=== PATIENT | female | born 1970 | race Caucasian/White ===

== ENCOUNTER → 2017-04-15 09:29 | Outpatient (CLI) | payer OTHER, SELFPAY ==
--- NOTE | 2017-04-15 09:33 | HPBI_ITS ---
MAMMOGRAPHY - BILATERAL SCREENING REASON FOR EXAM: Female, 47 years old. Routine annual screening examination. PERTINENT HISTORY: Aunt with breast cancer. TECHNIQUE: Digital bilateral breast robert (3D mammographic acquisition) in the CC and MLO projections. 2-D mediolateral oblique (MLO) and craniocaudad (CC) views of both breasts were obtained. CAD: Full Field Digital Mammography with Computer Added Detection was performed. COMPARISON: Comparison is made with prior abdomen examination dated September 20, 2010. FINDINGS: Breast Composition: There are scattered areas of fibroglandular density. There are no dominant masses or suspicious calcifications. Stable 6.7 mm x 6.8 mm nodule in the upper deep lateral portion of the left breast. This may represent a small cyst or small lymph node. Correlation with ultrasound is recommended. No other significant abnormalities are identified. There has been no significant change since the prior study. HPBI/SCREENING MAMM (CAD), BILAT IMPRESSION: Stable bilateral screening mammogram. Correlation with ultrasound of the right breast is recommended for further evaluation. ASSESSMENT CATEGORY: BIRADS Category 0: Incomplete. Need additional imaging evaluation. A letter regarding these results will be sent to the patient by the facility within 30 days. Approximately 10% of breast cancers are not detected by mammography. A normal mammogram should not delay biopsy of a clinically suspicious abnormality. [id number] Electronically Signed: Spenser Verma MD at 15:18 EST Tel [phone], Service support ,
== END ==
PROVIDERS: Family Provider Family Medicine; PCP Family Medicine; Visit Provider Family Medicine
DX: Z00.00 Encounter for general adult medical examination without abnormal findings (principal); Z12.31 Encounter for screening mammogram for malignant neoplasm of breast
CPT/HCPCS: 77063; 77067

== ENCOUNTER → 2017-04-23 10:25 | Outpatient (CLI) | payer OTHER, SELFPAY ==
--- NOTE | 2017-04-23 10:27 | US_ITS ---
STUDY: ULTRASOUND BREAST - LEFT REASON FOR EXAM: Female, 47 years old. Abnormal screening mammogram. TECHNIQUE: Axial and longitudinal images of the LEFT breast were performed with a high resolution ultrasound transducer. COMPARISON: Comparison is made with prior mammogram dated April 15, 2017. FINDINGS: LEFT Breast: There is a 6 mm x 6 mm x 4 mm well-defined hypoechoic nodule with central area of increased echotexture at the 2:00 position of the breast a 6 x 4. This corresponds to the mammographic findings. This most likely represents a small lymph node. US/Breast Limited Unilateral IMPRESSION: The mammographic findings correspond to a 6 mm x 6 mm x 4 mm lymph node. ASSESSMENT CATEGORY: BIRADS Category 2: Benign. A letter regarding these results will be sent to the patient by the facility within 30 days. Electronically Signed: Spenser Verma MD at 12:44 EST Tel [phone], Service support ,
== END ==
PROVIDERS: Family Provider Family Medicine; PCP Family Medicine; Visit Provider Family Medicine
DX: N63.20 Unspecified lump in the left breast, unspecified quadrant (principal)
CPT/HCPCS: 76642

== ENCOUNTER 2017-11-26 23:18 | Emergency (ER) | payer OTHER, SELFPAY ==
[2017-11-26 23:18] VITALS: BP 144/90; PULSE 67; RESP 14; TEMP 36.8; O2SAT 100; BMI 32.5
--- NOTE | 2017-11-26 23:50 | ED.VISSUMM ---
- ER Visit Summary Date of Service: 11/26/17 Chief Complaint: Right fourth finger swelling History of Present Illness: The patient is a 47 F he states the edge of her nail along the right fourth finger was torn back last week. She denies increased redness and swelling to the distal aspect of her right fourth finger and around her nail. She has not had any drainage from the area. Physical Examination: Vital signs unremarkable. Patient sitting upright in bed no acute distress. Right upper extremity examination was edema around the nail of the right fourth finger consistent with a paronychia. She has edema to the distal pad of the right fourth finger without evidence of a felon. Normal cap refill is noted with full range of motion. Test Results: Emergency Department Course and Treatment: Digital block was performed 2 cc 1% lidocaine. 1 cm incision is made along the radial aspect of the left fourth fingernail. Blood and a small amount of clear fluid is returned. Wound is cleansed and dressing is applied. Patient will be given 10 days of clindamycin with first dose here. Treatment Plan: [] Disposition: Discharge Impression: Paronychia right fourth finger, status post I&D This note was generated with [employer] dictation software. It may contain incorrect words, spelling, and punctuation that were not noted in review of the chart prior to signing ED Disposition - Plan for ED Patient: Disposition: Home or Assisted Living Chief Complaint: Upper Extremity Injury Instructions: ED Fingernail Infec Prescriptions: Clindamycin [Cleocin] 300 mg PO 4X/DAY #80 capsule Referrals: Chun Adams MD [Primary Care Provider] - 5-7 Days
[2017-11-26] MEDS: Clindamycin HCl 150 MG Capsule 300 MG PO (23:55)
--- NOTE | 2017-11-27 00:06 | ED.DEP ---
ED Disposition - Plan for ED Patient: Disposition: Home or Assisted Living Chief Complaint: Upper Extremity Injury Instructions: ED Fingernail Infec Prescriptions: Clindamycin [Cleocin] 300 mg PO 4X/DAY #80 capsule Referrals: Chun Adams MD [Primary Care Provider] - 5-7 Days
[2017-11-27 00:47] VITALS: BP 131/79; PULSE 81; RESP 18; O2SAT 97
--- NOTE | 2017-11-27 00:49 | ED.RN ---
THIS NURSE REVIEWED D/C INSTRUCTIONS WITH PT. PT VERBALIZED UNDERSTANDING OF INSTRUCTIONS. PT DENIES FURTHER NEEDS OR QUESTIONS AT THIS TIME. PT AMBULATES FROM ROOM ON OWN WITHOUT ASSISTANCE FROM STAFF
== END 2017-11-27 00:49 | disposition home or self-care (01) ==
LOC: ED 11-27 00:16
PROVIDERS: Emergency Provider Emergency Medicine; Family Provider Family Medicine; PCP Family Medicine
DX: L03.011 Cellulitis of right finger (principal); B96.89 Other specified bacterial agents as the cause of diseases classified elsewhere
CPT/HCPCS: 10060; 99283

== ENCOUNTER 2018-05-27 10:52 | Day surgery (SDC) | payer OTHER, SELFPAY ==
[2018-05-16 09:31] VITALS: BMI 35.8
[2018-05-27] VITALS (10 sets, daily range): BP systolic 77–119; BP diastolic 41–89; PULSE 59–71; RESP 16–18; TEMP 36.4–36.9; O2SAT 92–99; BMI 35.6
[2018-05-27 11:50] LABS: Internal QC Validated? YES +Cl - CLEAR BKGD; Pregnancy, Urine Negative Negative
[2018-05-27] MEDS: Cefazolin 2 GM in 0.9% Normal Saline 100 ML IV (13:42)
[2018-05-27] MEDS: Bupiv/Epi 0.5% Mpf 30 ML Vial (13:58)
[2018-05-27] MEDS: Bupivacaine 0.25% 30 ML Vial (14:15)
[2018-05-27] MEDS: MethylPREDNISolone Acetate 80 MG/ML Vial (14:15)
--- NOTE | 2018-05-27 14:26 | DCINST_ITS ---
Call your doctor if you observe: Fever of 101 or Higher, Shortness of breath Additional Instructions: Ice and elevate operative extremity next 72 hours. Keep dressing on clean and dry for 48 hours then may remove and allow warm soapy water to rinse over incision but do not submerge until sutures are out. Then apply bandaid over inci waldo and change daily. encourage finger range of motion. Not lift more than 1/2 pound. Allergies/Adverse Reactions: Allergies albuterol Allergy (Verified 05/21/18 14:55) Other hydrocodone [From Vicodin] Allergy (Verified 05/21/18 14:55) Other naproxen [From Aleve] Allergy (Verified 05/21/18 14:55) Hives oxaprozin [From Daypro] Allergy (Verified 05/21/18 14:55) Swelling Sulfa (Sulfonamide Antibiotics) Allergy (Verified 05/21/18 14:55) Hives Medications to take at Discharge lisinopril 5 mg tablet 20 mg PO DAILY tab 05/16/18 omeprazole 10 mg capsule,delayed release 40 mg PO DAILY cap 05/16/18 sertraline 25 mg tablet 75 mg PO DAILY tab 05/16/18 Levalbuterol Tartrate [Xopenex Hfa (SP)] 1 puff INHALATION Q4H PRN 05/21/18 Oxycodone HCl/Acetaminophen [Percocet 5/325] 1 - 2 tablet PO Q4H PRN PRN #20 tablet 05/27/18 The following prescriptions were given: Oxycodone HCl/Acetaminophen [Percocet 5/325] 1 - 2 tablet PO Q4H PRN PRN #20 tablet PRN Reason: Pain Primary Care Physician: Chun Adams MD [Primary Care Provider] - Test Results: Test results from this visit will be discussed in further detail at your follow- up appointment, if applicable. Please Follow Up With: Karri Infante DO - 2 weeks
--- NOTE | 2018-05-27 14:26 | PCM.OPRPT ---
Report of Operation Date of Procedure: 05/27/18 Description of Surgical Findings:: Preoperative diagnosis; bilateral carpal tunnel syndrome Postoperative diagnosis; same Procedure: Right carpal tunnel release open and left carpal tunnel injection Anesthesia: Local with MAC Tourniquet time; 13 minutes 250 mm Hg Indication for procedure; This is a 48-year-old female with long-standing symptoms consistent with carpal tunnel syndrome the patient did have electrodiagnostic evidence of this and has failed conservative treatment. Risks benefits and alternatives were reviewed including risks of bleeding infection nerve artery tissue damage need for further surgery and continued pain and symptoms, hypersensitivity to scar and Pillar pain. Procedure; The patient was met in the preoperative holding area the operative extremity was identified by both patient and physician and was marked the patient was met by anesthesia and brought back to the operating room and transferred to the operating table in the supine position. Aanesthesia was started. A well-padded tourniquet was placed on the right upper extremity. The patient was prepped and draped in the usual sterile fashion. A timeout was called to ensure the proper patient procedure and extremity were being contemplated. 0.5 percent Marcaine with epinephrine was injected into the incisional area. An Esmarch was used to exsanguinate the extremity. The tourniquet was inflated to 250 mmHg. A midline incision was made with a 15 blade scalpel between the thenar and hypothenar eminence. This was carried down through the skin and subcutaneous tissue. Corey retractors were then used, a deep blade scalpel was used to make a deep incision in the palmar aponeurosis. The corey retractors were then placed deep to this and the transverse carpal ligament was identified a perforation was made with a scalpel and a Littler scissors were used to complete the release of the transverse carpal ligament distally under direct visualization with the tips facing ulnarly until the perivascular fat was reached. Then turning our attention proximally using a tension slide technique the proximal extent of the transverse carpal ligament was released . There was noted to be hypertrophy of the transverse carpal ligament. The wound was thoroughly irrigated and was closed with 4-0 prolene vertical mattress stitches. Dressing was applied in the form of xeroform 4 x 4, web roll and an pauly wrap. Tourniquet was let down there is no intraoperative complications patient tolerated the procedure well and was transferred to the PACU. All counts were correct. - Complications None
== END 2018-05-27 16:03 | disposition home or self-care (01) ==
LOC: SDC 10:53 → AC 10:54
PROVIDERS: Anesthesiology; Family Provider Family Medicine; PCP Family Medicine; Referring Provider Orthopaedic Surgery; Visit Provider Orthopaedic Surgery
PROC: (CPT 64721; principal; 2018-05-27 12:20)
DX: G56.03 Carpal tunnel syndrome, bilateral upper limbs (principal); I10 Essential (primary) hypertension; J45.909 Unspecified asthma, uncomplicated; F41.9 Anxiety disorder, unspecified; K21.9 Gastro-esophageal reflux disease without esophagitis; Z79.899 Other long term (current) drug therapy
CPT/HCPCS: 01810; 20526; 64721; 81025; J7120; J2405

== ENCOUNTER 2018-07-10 08:07 | Emergency (ER) | payer OTHER, SELFPAY ==
[2018-05-27 11:45] VITALS: BMI 35.6
[2018-07-10 08:09] VITALS: BP 154/82; PULSE 70; RESP 18; TEMP 36.6; O2SAT 96; BMI 34.3
--- NOTE | 2018-07-10 08:25 | RAD_ITS ---
STUDY: X-RAY - LEFT HAND REASON FOR EXAM: Female, 48 years old. Fifth digit pain TECHNIQUE: 3 view(s) of the hand. COMPARISON: None. FINDINGS: On only the oblique view, there is a serpiginous lucency in the distal tuft of the distal phalanx of the fifth digit suggestive of a fracture but this is not confirmed on the lateral or AP films. Normal radiocarpal articulation. Normal distal radioulnar joint. Normal visualized carpal bones. Normal carpal articulations Normal carpometacarpal articulation of the thumb. Normal second through fifth carpometacarpal joints. Normal metacarpi. Normal metacarpophalangeal joint of the thumb. Normal interphalangeal joint of the thumb. Normal proximal and distal phalanges of the thumb. Normal metacarpophalangeal joints of the second through fifth fingers. Normal proximal and distal interphalangeal joints of the second through fifth fingers. Normal phalanges of the second through fifth fingers. The soft tissue structures are unremarkable. RAD/Hand Min 3 Views IMPRESSION: Nondisplaced fracture in the distal tuft of the distal phalanx seen only on the oblique view. Please correlate with physical findings. Electronically Signed: Michel Cherry MD at 8:43 EDT , Service support ,
--- NOTE | 2018-07-10 08:39 | ED.RN ---
pt mother to door. requests new physician. states very angry at this dr attitude. pt reassured. dr villa aware. dr ku paged
--- NOTE | 2018-07-10 08:40 | ED.VISSUMM ---
- ER Visit Summary Date of Service: 07/10/18 Chief Complaint: Left fifth finger injury History of Present Illness: The patient is a 48 F who hit her left fifth finger against a counter 2 weeks ago. Patient states she did not think much of it at the time the area continues to be painful. She is right-hand dominant but did recently have carpal tunnel surgery on her right wrist so has been using her left hand more than normal. Physical Examination: Vital signs significant for blood pressure 154/82, otherwise unremarkable. Patient sitting upright in bed no acute distress. Left upper extremity examination was tenderness to the PIP joint of the left fifth finger. No significant edema or erythema. She has full range of motion. Ligaments are tight on testing. Normal cap refill and sensation are noted. Test Results: Left hand x-rays reveal a nondisplaced fracture of the distal tuft of the distal phalanx that is only visible on the oblique view. Emergency Department Course and Treatment: Test results were discussed with the patient and she was shown a copy of her x-ray. When the distal phalanx is palpated patient has pain at the PIP joint. She will be placed in a AlumaFoam splint to immobilize the PIP joint as well as protect the distal phalanx. Patient is known to Dr. Infante and will follow-up if not improving. Treatment Plan: [] Disposition: Discharge Impression: Left fifth finger distal tuft fracture, nondisplaced This note was generated with [employer] dictation software. It may contain incorrect words, spelling, and punctuation that were not noted in review of the chart prior to signing ED Disposition - Plan for ED Patient: Disposition: Home or Assisted Living Instructions: ED Fx Finger Closed Referrals: Karri Infante DO [STAFF PHYSICIAN] - 1 Week if not improving
== END 2018-07-10 11:49 | disposition home or self-care (01) ==
PROVIDERS: Emergency Provider Emergency Medicine; Family Provider Family Medicine; PCP Family Medicine
DX: S62.667A Nondisplaced fracture of distal phalanx of left little finger, initial encounter for closed fracture (principal); W22.8XXA Striking against or struck by other objects, initial encounter; Y93.9 Activity, unspecified; Y92.9 Unspecified place or not applicable; I10 Essential (primary) hypertension; J45.909 Unspecified asthma, uncomplicated
CPT/HCPCS: 73130; 99283

== ENCOUNTER → 2018-08-01 09:32 | Outpatient (CLI) | payer OTHER, SELFPAY ==
[2018-08-01 07:54] VITALS: BMI 34.3
--- NOTE | 2018-08-01 09:33 | RAD_ITS ---
STUDY: X-RAY - LEFT HAND REASON FOR EXAM: Female, 48 years old. Fracture follow-up TECHNIQUE: 3 view(s) of the hand. COMPARISON: 07/10/2018 FINDINGS: Normal radiocarpal articulation. Normal distal radioulnar joint. Normal visualized carpal bones. Normal carpal articulations Normal carpometacarpal articulation of the thumb. Normal second through fifth carpometacarpal joints. Normal metacarpi. Normal metacarpophalangeal joint of the thumb. Normal interphalangeal joint of the thumb. Normal proximal and distal phalanges of the thumb. Normal metacarpophalangeal joints of the second through fifth fingers. Normal proximal and distal interphalangeal joints of the second through fifth fingers. Normal phalanges of the second through fifth fingers. The soft tissue structures are unremarkable. RAD/Hand Min 3 Views IMPRESSION: No fracture or malalignment identified on current exam. Electronically Signed: Joseph Mathew MD at 14:03 EDT , Service support ,
== END ==
PROVIDERS: Family Provider Family Medicine; PCP Family Medicine; Referring Provider Orthopaedic Surgery; Visit Provider Orthopaedic Surgery
DX: S69.92XA Unspecified injury of left wrist, hand and finger(s), initial encounter (principal)
CPT/HCPCS: 73130

== ENCOUNTER 2018-08-19 06:00 | Day surgery (SDC) | payer OTHER, SELFPAY ==
[2018-08-01 07:54] VITALS: BMI 34.3
--- NOTE | 2018-08-01 10:49 | HP_ITS ---
Intake Vital Signs 08/01/18 Body Mass Index (BMI) 34.3 Intake Visit Reasons: L. HAND Chief Complaint: b/l hand numbness Allergies albuterol Allergy (Verified 07/10/18 08:11) Other hydrocodone [From Vicodin] Allergy (Verified 07/10/18 08:11) Other naproxen [From Aleve] Allergy (Verified 07/10/18 08:11) Hives oxaprozin [From Daypro] Allergy (Verified 07/10/18 08:11) Swelling Sulfa (Sulfonamide Antibiotics) Allergy (Verified 07/10/18 08:11) Hives Medications lisinopril 5 mg tablet 20 mg PO DAILY tab 05/16/18 [History Confirmed 07/10/18] omeprazole 10 mg capsule,delayed release 40 mg PO DAILY cap 05/16/18 [History Confirmed 07/10/18] sertraline 25 mg tablet 75 mg PO DAILY tab 05/16/18 [History Confirmed 07/10/18] Levalbuterol Tartrate [Xopenex Hfa (SP)] 1 puff INHALATION Q4H PRN 05/21/18 [History Confirmed 07/10/18] Oxycodone HCl/Acetaminophen [Percocet 5/325] 1 - 2 tab PO Q4H PRN PRN #20 tab 05/27/18 [Rx Confirmed 07/10/18] PFSH Medical History Asthma (Acute) HISTORY OF CHILD (Acute) History of goiter (Acute) Hypertension (Chronic) Surgical History H/O colposcopy with cervical biopsy (Inactive) Social History Smoking Status: Never smoker alcohol intake: never HPI L. HAND: Chief Complaint: left pinky finger injury and left carpal tunnel Surgical H&P: Yes Details: Parts of this documentation were recorded by a scribe, this documentation accurately reflects the service provided and the decisions made by me, Karri Infante DO 08/01/18 [id number]. ATTILA IRBY is a 48 year old F here today for left pinky finger fx that occurred on 06/16/18. Patient then went to the ER 3 weeks later. They gave her a spilt and told her to keep her pinky immobile and if this was still causing her pain she was instructed to F/U with ortho. The injury was her smacking the back of her hand against a solid object . She is not having any pain at the tip of the finger but more isolated to the PIP and MP joints. She did trial clary taping on her own .. Has good ROM but does have pain. She is able to flex and extend the digit with ease she did have a cortisone injection of the left carpal tunnel on 05/27/18 for carpal tunnel which she states is staring to wear off. Last x-rays of jayden are July 10. Patient is also starting to have her carpal tunnel s/sx back in the left wrist/hand. right hand is doing well. ROS Const Reports system reviewed and no additional complaints, except as docu Eyes Reports system reviewed and no additional complaints, except as docu ENT Reports system reviewed and no additional complaints, except as docu Card Reports system reviewed and no additional complaints, except as docu Resp Reports system reviewed and no additional complaints, except as docu GI Reports system reviewed and no additional complaints, except as docu Musc Reports system reviewed and no additional complaints, except as docu, Reports as per HPI Skin/Breast Reports system reviewed and no additional complaints, except as docu Neuro Yes system reviewed and no additional complaints, except as docu Psych Reports system reviewed and no additional complaints, except as docu Endo Reports system reviewed and no additional complaints, except as docu Sourav/Lymph Reports system reviewed and no additional complaints, except as docu Aller/Immun Reports system reviewed and no additional complaints, except as docu Ortho Exam Left Wrist/Hand WRIST: Intact extensor tendon without subluxation through range of motion intact FDS and FDP There is no collateral ligament instability to MP or PIP joints in full extension or 30 degrees of flexion there is no pain with these test either radial side of the 5th PIP joint no extensor tendon subluxation. Intact sensation light touch brisk capillary Provocative signs for carpal tunnel are present Supplemental Info 01/2018: EMG moderate bilateral carpal tunnel 07/10/2018 x-ray left hand: Nondisplaced distal phalanx tuft fracture fifth digit only seen on oblique view. Assessment & Plan Problems 1. Carpal tunnel syndrome of left wrist G56.02 2. Contusion of left little finger without damage to nail, initial encounter S60.889Q Plan Appeared that she possibly had a fx from the 07/10/18 x-rays of the distal phalanx however she is not having pain there today I suspect she has sustained a bone bruise to the proximal phalanx. . Educated that this may take up to 4 months to fully heal. it is recommended that she try a lidocaine gel to the painful area that she can get OTC. Since patient is also getting her carpal tunnel symptoms back she would like to proceed left carpal tunnel release risk benefits and alternatives once again reviewed bleeding infection nerve artery tissue damage need for further surgery continue pain scar hypersensitivity pillar pain. as she has had the right one done by myself and did well we will put her on the August 19 per her request. All questions answered. Patient in agreement of plan. Orders Orders: Hand Min 3 Views Today R52 Coding Level of Care Code Off vis,est,level 4 Diagnoses Carpal tunnel syndrome of left wrist G56.02 Contusion of left little finger without damage to nail, initial encounter S60.052A ??Damage to nail status: without damage ??Encounter type: initial encounter 08/01/18 2000 <Electronically signed by Karri Infante DO> Date Karri Infante DO
[2018-08-19] VITALS (8 sets, daily range): BP systolic 88–128; BP diastolic 58–88; PULSE 73–83; RESP 16–18; TEMP 36.1–36.5; O2SAT 94–99; BMI 37.9
[2018-08-19 06:36] LABS: Internal QC Validated? YES +Cl - CLEAR BKGD; Pregnancy, Urine Negative Negative
--- NOTE | 2018-08-19 07:15 | PCM.HP.BLA ---
History and Physical Date of Admission: 08/19/18 Intake Vital Signs 08/01/18 Body Mass Index (BMI) 34.3 Intake Visit Reasons: L. HAND Chief Complaint: b/l hand numbness Allergies albuterol Allergy (Verified 07/10/18 08:11) Other hydrocodone [From Vicodin] Allergy (Verified 07/10/18 08:11) Other naproxen [From Aleve] Allergy (Verified 07/10/18 08:11) Hives oxaprozin [From Daypro] Allergy (Verified 07/10/18 08:11) Swelling Sulfa (Sulfonamide Antibiotics) Allergy (Verified 07/10/18 08:11) Hives Medications lisinopril 5 mg tablet 20 mg PO DAILY tab 05/16/18 [History Confirmed 07/10/18] omeprazole 10 mg capsule,delayed release 40 mg PO DAILY cap 05/16/18 [History Confirmed 07/10/18] sertraline 25 mg tablet 75 mg PO DAILY tab 05/16/18 [History Confirmed 07/10/18] Levalbuterol Tartrate [Xopenex Hfa (SP)] 1 puff INHALATION Q4H PRN 05/21/18 [History Confirmed 07/10/18] Oxycodone HCl/Acetaminophen [Percocet 5/325] 1 - 2 tab PO Q4H PRN PRN #20 tab 05/27/18 [Rx Confirmed 07/10/18] PFSH Medical History Asthma (Acute) HISTORY OF CHILD (Acute) History of goiter (Acute) Hypertension (Chronic) Surgical History H/O colposcopy with cervical biopsy (Inactive) Social History Smoking Status: Never smoker alcohol intake: never HPI L. HAND: Chief Complaint: left pinky finger injury and left carpal tunnel Surgical H&P: Yes Details: Parts of this documentation were recorded by a scribe, this documentation accurately reflects the service provided and the decisions made by me, Karri Infante DO 08/01/18 0754. ATTILA IRBY is a 48 year old F here today for left pinky finger fx that occurred on 06/16/18. Patient then went to the ER 3 weeks later. They gave her a spilt and told her to keep her pinky immobile and if this was still causing her pain she was instructed to F/U with ortho. The injury was her smacking the back of her hand against a solid object . She is not having any pain at the tip of the finger but more isolated to the PIP and MP joints. She did trial clary taping on her own .. Has good ROM but does have pain. She is able to flex and extend the digit with ease she did have a cortisone injection of the left carpal tunnel on 05/27/18 for carpal tunnel which she states is staring to wear off. Last x-rays of jayden are July 10. Patient is also starting to have her carpal tunnel s/sx back in the left wrist/hand. right hand is doing well. ROS Const Reports system reviewed and no additional complaints, except as docu Eyes Reports system reviewed and no additional complaints, except as docu ENT Reports system reviewed and no additional complaints, except as docu Card Reports system reviewed and no additional complaints, except as docu Resp Reports system reviewed and no additional complaints, except as docu GI Reports system reviewed and no additional complaints, except as docu Musc Reports system reviewed and no additional complaints, except as docu, Reports as per HPI Skin/Breast Reports system reviewed and no additional complaints, except as docu Neuro Yes system reviewed and no additional complaints, except as docu Psych Reports system reviewed and no additional complaints, except as docu Endo Reports system reviewed and no additional complaints, except as docu Sourav/Lymph Reports system reviewed and no additional complaints, except as docu Aller/Immun Reports system reviewed and no additional complaints, except as docu Ortho Exam Left Wrist/Hand WRIST: Intact extensor tendon without subluxation through range of motion intact FDS and FDP There is no collateral ligament instability to MP or PIP joints in full extension or 30 degrees of flexion there is no pain with these test either radial side of the 5th PIP joint no extensor tendon subluxation. Intact sensation light touch brisk capillary Provocative signs for carpal tunnel are present Supplemental Info 01/2018: EMG moderate bilateral carpal tunnel 07/10/2018 x-ray left hand: Nondisplaced distal phalanx tuft fracture fifth digit only seen on oblique view. Assessment & Plan Problems 1. Carpal tunnel syndrome of left wrist G56.02 2. Contusion of left little finger without damage to nail, initial encounter S60.042A Plan Appeared that she possibly had a fx from the 4/25/19 x-rays of the distal phalanx however she is not having pain there today I suspect she has sustained a bone bruise to the proximal phalanx. . Educated that this may take up to 4 months to fully heal. it is recommended that she try a lidocaine gel to the painful area that she can get OTC. Since patient is also getting her carpal tunnel symptoms back she would like to proceed left carpal tunnel release risk benefits and alternatives once again reviewed bleeding infection nerve artery tissue damage need for further surgery continue pain scar hypersensitivity pillar pain. as she has had the right one done by myself and did well we will put her on the August 19 per her request. All questions answered. Patient in agreement of plan. Orders Orders: Hand Min 3 Views Today R52 Coding Level of Care Code Off vis,est,level 4 Diagnoses Carpal tunnel syndrome of left wrist G56.02 Contusion of left little finger without damage to nail, initial encounter S60.052A ??Damage to nail status: without damage ??Encounter type: initial encounter 08/01/18 1050 <Electronically signed by Karri Infante DO> Date Karri Infante DO I have examined the patient the following changes are noted:
[2018-08-19] MEDS: Cefazolin 2 GM in 0.9% Normal Saline 100 ML IV (07:22)
[2018-08-19] MEDS: Bupiv/Epi 0.5% Mpf 30 ML Vial (07:51)
--- NOTE | 2018-08-19 07:55 | DCINST_ITS ---
Additional Instructions: Ice and elevate operative extremity next 72 hours. Keep dressing on clean and dry for 48 hours then may remove and allow warm soapy water to rinse over incision but do not submerge until sutures are out. Then apply bandaid over incision and change daily. encourage finger range of motion. Not lift more than 1/2 pound. Allergies/Adverse Reactions: Allergies albuterol Allergy (Verified 08/19/18 06:16) Other hydrocodone [From Vicodin] Allergy (Verified 08/19/18 06:16) Other naproxen [From Aleve] Allergy (Verified 08/19/18 06:16) Hives oxaprozin [From Daypro] Allergy (Verified 08/19/18 06:16) Swelling Sulfa (Sulfonamide Antibiotics) Allergy (Verified 08/19/18 06:16) Hives Medications to take at Discharge lisinopril 5 mg tablet 20 mg PO DAILY tab 05/16/18 omeprazole 10 mg capsule,delayed release 40 mg PO DAILY cap 05/16/18 sertraline 25 mg tablet 75 mg PO DAILY tab 05/16/18 Levalbuterol Tartrate [Xopenex Hfa (SP)] 1 puff INHALATION Q4H PRN 05/21/18 Primary Care Physician: Chun Adams MD [Primary Care Provider] - Test Results: Test results from this visit will be discussed in further detail at your follow- up appointment, if applicable. Please Follow Up With: Karri Infante DO - 2 weeks
--- NOTE | 2018-08-19 07:57 | PCM.OPRPT ---
Report of Operation Date of Procedure: 08/19/18 Description of Surgical Findings:: Preoperative diagnosis; left carpal tunnel syndrome Postoperative diagnosis; same Procedure: Left open carpal tunnel release Anesthesia: Local with MAC Tourniquet time; 10 minutes 250 mm Hg Complications: None Indication for procedure; This is a 48-year-old female with long-standing symptoms consistent with carpal tunnel syndrome the patient did have electrodiagnostic evidence of this and has failed conservative treatment. Risks benefits and alternatives were reviewed including risks of bleeding infection nerve artery tissue damage need for further surgery and continued pain and symptoms, hypersensitivity to scar and Pillar pain. Procedure; The patient was met in the preoperative holding area the operative extremity was identified by both patient and physician and was marked the patient was met by anesthesia and brought back to the operating room and transferred to the operating table in the supine position. Aanesthesia was started. A well-padded tourniquet was placed on the operative upper extremity. The patient was prepped and draped in the usual sterile fashion. A timeout was called to ensure the proper patient procedure and extremity were being contemplated. 0.5 percent Marcaine with epinephrine was injected into the incisional area. An Esmarch was used to exsanguinate the extremity. The tourniquet was inflated to 250 mmHg. A midline incision was made with a 15 blade scalpel between the thenar and hypothenar eminence. This was carried down through the skin and subcutaneous tissue. Corey retractors were then used, a deep blade scalpel was used to make a deep incision in the palmar aponeurosis. The corey retractors were then placed deep to this and the transverse carpal ligament was identified a perforation was made with a scalpel and a Littler scissors were used to complete the release of the transverse carpal ligament distally under direct visualization with the tips facing ulnarly until the perivascular fat was reached. Then turning our attention proximally using a tension slide technique the proximal extent of the transverse carpal ligament was released . There was noted to be hourglass configuration to the median nerve and hypertrophy of the transverse carpal ligament without other findings. The wound was thoroughly irrigated and was closed with 4-0 prolene vertical mattress stitches. Dressing was applied in the form of xeroform 4 x 4, web roll and an pauly wrap. Tourniquet was let down there is no intraoperative complications patient tolerated the procedure well and was transferred to the PACU. All counts were correct.
== END 2018-08-19 08:59 | disposition home or self-care (01) ==
LOC: SDC 06:01 → AC 06:02
PROVIDERS: Anesthesiology; Family Provider Family Medicine; PCP Family Medicine; Referring Provider Orthopaedic Surgery; Visit Provider Orthopaedic Surgery
PROC: (CPT 64721; principal; 2018-08-19 07:15)
DX: G56.02 Carpal tunnel syndrome, left upper limb (principal); S60.052A Contusion of left little finger without damage to nail, initial encounter; W22.8XXA Striking against or struck by other objects, initial encounter; K21.9 Gastro-esophageal reflux disease without esophagitis; I10 Essential (primary) hypertension; J45.909 Unspecified asthma, uncomplicated; F41.9 Anxiety disorder, unspecified; Z79.899 Other long term (current) drug therapy
CPT/HCPCS: 64721; 81025; J7120; J2405

== ENCOUNTER 2018-09-14 14:11 | Emergency (ER) | payer OTHER, SELFPAY ==
[2018-09-01 10:18] VITALS: BMI 37.9
[2018-09-14 14:13] VITALS: BP 148/95; PULSE 78; RESP 16; TEMP 36.8; O2SAT 96; BMI 34.3
--- NOTE | 2018-09-14 14:29 | RAD_ITS ---
STUDY: X-RAY - LEFT WRIST REASON FOR EXAM: Female, 48 years old. Left wrist pain and swelling following carpal tunnel syndrome surgery or weeks ago TECHNIQUE: 3 view(s) of the wrist were obtained. COMPARISON: None. FINDINGS: Normal visualized distal radius and ulna. Normal radiocarpal articulation. Normal distal radioulnar articulation. Normal carpal bones. Normal carpal articulations. Normal carpometacarpal articulation of the thumb. Normal second through fifth carpometacarpal articulations. Normal visualized metacarpal bones. There is diffuse soft tissue swelling of the wrist. RAD/Wrist min 3 Views IMPRESSION: Soft tissue swelling without demonstrated fracture or erosive process. Electronically Signed: Joseph Mathew MD at 15:14 EDT , Service support ,
--- NOTE | 2018-09-14 14:41 | ED.VISSUMM ---
- ER Visit Summary Date of Service: 09/14/18 Chief Complaint: Left wrist pain History of Present Illness: The patient is a 48 F who is 4 weeks status post tunnel release on her left wrist by Dr. Infante presents to the emergency department increasing pain. Patient states that yesterday, she was at [facility]. She states that she reached for something with her left hand. She cannot recall any definitive trauma. States overnight, there was more swelling in her wrist. She states that she had some tingling in her thumb. Today, the swelling has improved but she was just concerned. She denies any fevers or chills. She denies any other systemic symptoms. She has not had to wear her brace in some time. Physical Examination: Exam is relatively unremarkable. There is no evidence of dehiscence of her postoperative wound. There is a questionable small seroma at the proximal aspect of the incision. There is no cellulitis or purulence. There is no streaking. Pulses are normal. She is neurovascularly intact. There is no weakness. She is able to flex and extend without issue. Compartments are soft. Test Results: [] Emergency Department Course and Treatment: Patient presents with pain after twisting her wrist. Her exam is unremarkable. I do question if there is a small seroma at the proximal aspect of her incision, but there is no significant cellulitis. I do not feel his need to drain. I am hesitant to even attempt to aspirate it as the risk of seeding and infection and a recent surgical site. I did obtain plain films which were unremarkable. I am going to treat the patient conservatively with bracing and have a follow-up with orthopedic surgeon in the next few days. She is comfortable with this plan of care. I did substance abuse counselor her on concerning symptoms and reasons to return. She will be discharged to home. Treatment Plan: [] Disposition: Discharge Impression: Left wrist sprain This note was generated with [employer] dictation software. It may contain incorrect words, spelling, and punctuation that were not noted in review of the chart prior to signing ED Disposition - Plan for ED Patient: Instructions: Wrist Sprain Referrals: Karri Infante DO [STAFF PHYSICIAN] - 3-5 Days if not improving
[2018-09-14 15:01] VITALS: PULSE 81; RESP 16; O2SAT 98
== END 2018-09-14 15:03 | disposition home or self-care (01) ==
LOC: ED 14:35
PROVIDERS: Emergency Provider Emergency Medicine; Family Provider Family Medicine; PCP Family Medicine
DX: S63.502A Unspecified sprain of left wrist, initial encounter (principal); X58.XXXA Exposure to other specified factors, initial encounter; Y93.89 Activity, other specified; Y92.512 Supermarket, store or market as the place of occurrence of the external cause; Z98.890 Other specified postprocedural states; I10 Essential (primary) hypertension
CPT/HCPCS: 73110; 99283

== ENCOUNTER → 2019-04-28 14:47 | Outpatient (CLI) | payer OTHER, SELFPAY ==
[2018-11-24 09:35] VITALS: BMI 34.3
[2019-05-04 20:54] LABS: HPV Reflexed? NOT INDICATED
== END ==
PROVIDERS: PCP Family Medicine; Referring Provider Nurse Practitioner Adult Health; Visit Provider Nurse Practitioner Adult Health
DX: Z01.419 Encounter for gynecological examination (general) (routine) without abnormal findings (principal)
CPT/HCPCS: 88175; G0145

== ENCOUNTER 2019-10-24 22:36 | Emergency (ER) | payer OTHER, SELFPAY ==
[2018-11-24 09:35] VITALS: BMI 34.3
[2019-10-24 22:37] VITALS: BP 155/98; PULSE 87; RESP 15; TEMP 35.1; O2SAT 98; BMI 37.5
[2019-10-24 22:48] VITALS: PULSE 86; RESP 18; O2SAT 98
--- NOTE | 2019-10-24 22:57 | ED.DCSUM_ITS ---
History of Present Illness Chief Complaint: Allergic Reaction Informant: Patient Onset: Today Context: Gradual Onset Timing: Continuous Current Severity: Mild Maximum Severity: Mild Narrative: The patient is a 49-year-old female who presents to the emergency department complaining of tongue swelling. Patient states that started about an hour ago. She states she felt like her tongue was bigger than usual. She also describes it as burning. She denies any trouble speaking or swallowing. She states when she noticed that, she did take an Jessy. The patient is on lisinopril. She has no history of angioedema. She does not recall any new exposures. She states she has multiple food allergies, but nothing that she was exposed to. The patient states she is otherwise been in her normal state of health. Prior similar symptoms: No Recent Illness/Hospitalization: No Past Medical History - Allergies and Home Meds Allergies/Adverse Reactions: Allergies albuterol Allergy (Verified 10/24/19 22:40) Other hydrocodone [From Vicodin] Allergy (Verified 10/24/19 22:40) Other mint Allergy (Verified 10/24/19 22:50) Rash naproxen [From Aleve] Allergy (Verified 10/24/19 22:40) Hives oxaprozin [From Daypro] Allergy (Verified 10/24/19 22:40) Swelling strawberry Allergy (Verified 10/24/19 22:50) Hives Sulfa (Sulfonamide Antibiotics) Allergy (Verified 10/24/19 22:40) Hives tea tree Allergy (Verified 10/24/19 22:50) Rash Primary Care Physician: Cuhn Adams MD [Primary Care Provider] - Prior records reviewed: Yes Past Medical History: - - Hypertension, thyroid disease Surgical History: noncontributory Smoking Status: Never smoker Review of Systems General: Denies: Chills, Fever, Sweats Eyes: Denies: Visual changes - bilaterally, Diplopia ENT: Denies: Rhinorrhea, Sore throat Cardiovascular: Denies: Chest pain, Palpitations Respiratory: Denies: Dyspnea, Cough, Dyspnea on exertion Gastrointestinal: Denies: Abdominal pain, Nausea, Vomiting, Diarrhea, Melena, Hematochezia Genitourinary: Denies: Dysuria, Hematuria, Frequency Musculoskeletal: Denies: Back pain, Extremity Pain Skin: Denies: Rash, Wounds Neurological: Denies: Headache, Weakness, Numbness Physical Exam Vital Signs/Narrative: Vital Signs Temp Pulse Resp BP Pulse Ox 10/24/19 22:48 86 18 98 10/24/19 22:37 95.2 F L 87 15 155/98 H 98 Inital Vital Signs reviewed: Yes General: Well nourished, Well developed, No Acute Distress Head: Normocephalic, Atraumatic Eyes: Perrl, EOMI ENT: Moist mucous membranes, No rhinorrhea Neck: Supple, Nontender Cardiovascular: Regular rate, Regular rhythm, No murmurs Respiratory: No distress, CTA bilaterally, Chest nontender Abdomen: Soft, Nontender, Nondistended, Normal bowel sounds Back: Nontender, Normal Inspection Extremities: Nontender, No edema Skin: Normal color, No rash Neurological: Alert, Oriented x3, Cranial nerves II-XII grossly intact, Normal Strength, Normal Sensation Psychological: Normal affect, Normal Mood Diagnostic/Tx/Re-eval - Medical Decision Making The patient presents reporting tongue pain and swelling. The posterior oropharynx is widely patent. There is no trismus or stridor. There is no significant angioedema. The submental space is soft. Not sure if this is a mild angioedema from the SHALONDA. The patient was treated with Benadryl, Solu- Medrol, and Pepcid. She is observed. She is had no progression of symptoms. A t this point, she will be observed for a total of 2 hours. I do feel that as long as her is no progression, she can safely be discharged. I will keep her on a prednisone burst. I will also have her hold her lisinopril until she follows up with Dr. Parra. She is comfortable with this plan of care. Impression 1. Mild angioedema ED Disposition - Plan for ED Patient: Instructions: ED Angioedema Referrals: Chun Adams MD [Primary Care Provider] - Additional Instructions: Do not take your lisinopril until you follow-up with Dr. Parra.
[2019-10-24] MEDS: MethylPREDNISolone 125 MG/2 ML Vial IV (23:04)
[2019-10-24] MEDS: 0.9% Normal Saline 1,000 ML 1000 ML IV (23:04)
[2019-10-24] MEDS: Famotidine 200 MG/20 ML MDV 20 MG in 0.9% Normal Saline (Pres. free 8 ML 300 MG IV (23:06)
[2019-10-24] MEDS: DiphenhydrAMINE 50 MG/ML Syringe IV (23:09)
[2019-10-25 00:33] VITALS: BP 155/88; PULSE 86; RESP 15; O2SAT 97
== END 2019-10-25 00:33 | disposition home or self-care (01) ==
LOC: ED 10-25 00:29
PROVIDERS: Emergency Provider Emergency Medicine; PCP Family Medicine
DX: T78.3XXA Angioneurotic edema, initial encounter (principal); I10 Essential (primary) hypertension
CPT/HCPCS: 96361; 96374; 96375; 99284; J7030; A4216; J3490

== ENCOUNTER → 2020-06-21 07:59 | Outpatient (CLI) | payer OTHER, SELFPAY ==
--- NOTE | 2020-06-21 08:01 | BI_ITS ---
MAMMOGRAPHY - BILATERAL SCREENING 3-D TOMOSYNTHESIS REASON FOR EXAM: Female, 50 years old. SCREENING PERTINENT HISTORY: Aunt with breast cancer.. TECHNIQUE: 2-D mammograms and 3-D Tomosynthesis of the breast (s) were performed. CAD was performed. COMPARISON: 04/15/2017 FINDINGS: The breast composition is heterogeneously dense that can obscure small breast masses. Scattered benign calcifications are seen. No dense spiculated masses or suspicious microcalcifications are identified. No architectural distortion is identified. There is no skin thickening or retraction. Stable subcentimeter well-defined nodule in the upper-outer quadrant of the left breast. There has been no significant change since the prior study. BI/SCRN MAMM (CAD)W/JAY BILAT IMPRESSION: No mammographic signs of malignancy. Routine yearly mammograms recommended. ASSESSMENT CATEGORY: BIRADS Category 2: Benign. A letter regarding these results will be sent to the patient by the facility within 30 days. FOLLOW UP RECOMMENDATION: Yearly follow up mammogram recommended. (A) Approximately 10% of breast cancers are not detected by mammography. A normal mammogram should not delay biopsy of a clinically suspicious abnormality. Electronically Signed: Michel Cherry MD at 10:30 EDT , Service support ,
== END ==
PROVIDERS: PCP Family Medicine; Referring Provider Family Medicine; Visit Provider Family Medicine
DX: Z12.31 Encounter for screening mammogram for malignant neoplasm of breast (principal)
CPT/HCPCS: 77063; 77067

== ENCOUNTER → 2020-10-05 10:29 | Outpatient (CLI) | payer OTHER, SELFPAY ==
[2020-10-05 12:44] LABS: Anion Gap 6 (5-15); BUN 13 mg/dL (7-18); BUN/Creat Ratio 17.7 RATIO (10-20); Calcium,Total 8.6 mg/dL (8.5-10.1); Chloride 105 mmol/L (98-107); Cholesterol 235 mg/dL (200); Creatinine, Serum 0.74 mg/dL (0.55-1.02); EST Glomerular Filtration Rate 89 mL/min (>60); Est Glom Filt Rate - Afr Amer 107 mL/min (>60); Glucose 111 mg/dL (74-106); High Density Lipoprotein 49 mg/dL; Sodium Level 140 mmol/L (136-145); Triglycerides 137 mg/dL; Very Low Density Lipoprotein 27 mg/dL (5-40)
== END ==
PROVIDERS: PCP Family Medicine; Visit Provider Family Medicine
DX: Z13.1 Encounter for screening for diabetes mellitus (principal); Z13.220 Encounter for screening for lipoid disorders
CPT/HCPCS: 36415; 80048; 80061; 84443

== ENCOUNTER 2020-10-12 13:30 | Outpatient (RCR) | payer OTHER, SELFPAY ==
--- NOTE | 2020-09-28 16:56 | HP.PTEVAL ---
Patient's Visit Information ATTILA IRBY is a 50 year old F referred to Physical Therapy by Dr. Chun Adams MD with a diagnosis of Scapular Dysfunction. Date of Evaluation: 09/28/20 Physical Therapist: Angeline Nazario DPT - Visit Plan Frequency: 2x /Week Duration: 4 Weeks Plan: Focus on scapular and core strength/stabilization- modality of US as needed. HEP Given IE: Postural education, scapular retractions, levator stretch, corner stretch, CT Junction Stretch - Subjective Patient reports that she has pain in the right shoulder that's been happening since around the first week in June. Has had issues of back injuries for years- starting at age 21- she was lifting something very heavy at work- 90# box to a cart. No popping or catching when it happened. The pain is located the shoulder blade and a spot on the anterior shoulder in the bicipital groove. Feels the pain is continuing to stay the same since injury. Describes the pain as achy and more of a nerve pain. She sleeps on her left side and it wakes her up at night- almost feels like its pulling. Worst: 5/10 Agg: particular reach- putting something into the car. Eases: getting out of that position. Best: 0/10. 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 No N/T down the arm- has had carpal tunnel prior but has no symptoms at this time. No neck pain, blurred vision, dizziness, GIBSON. Right hand dominate. Back Problems- 1991 marched [employer] in college- sprained her back and has bulging discs- wears a three hook bra due to pinched nerves in low back and mid back. She has had intermittent- no surgery or injections- Had a big back flare up at the same time as the shoulder. PMHx: ASTHMA, anxiety, GERD, bilateral carpal tunnel Meds: inhaler as needed, citrolene, lorazipam prn, omeporzol- No injections- or x-rays of the shoulder. - Objective Posture: Fh, RS can correct with verbal and tactile cues but is unable to maintain. Gait: no deviation noted good arm swing and trunk rotation. Palpation: tender along medial border of the scapula and into the upper trap. ROM: Cervical: WFL does have mild increased tightness in Levator and upper trap bilaterally. Shoulder: WFL does report pain with IR behind the back and performs slowly. Elbow/Wrist/hand: WFL. Strength: Scap: poor- moderate winging and decreased movement of the scapula with strength testing, Core: poor, Shoulder: flexion/abd: 4+/5 with discomfort, IR/ER: 4/5, Add: 4+/5 extn: 4/5 with pain. Special Test: Impingment: neer: positive, huitron: positive, speeds: positive, empty can: positive belly lift off: positive - Goals Goal 1:: Patient will be I with HEP and progression Goal Time Frame: 4-6 Weeks Goal 2:: Patient will maintain proper posture t/o tx session to demo increase scap and core s/s Goal 3:: Patient will demo full AROM painfree of the right shoulder Goal Time Frame: 4-6 Weeks Goal 4:: Patient will report sleeping through the night without pain for 1 week Goal Time Frame: 4-6 Weeks - Rehabilitation Potential Physical Therapy Diagnosis: Patient presents with hypomobility- she has decreased painfree ROM, scap and core strength/stabilization, UE strength and muscular endurance leading to scapular dysfunction and impingement causing pain with ADL's. Rehabilitation Potential: Fair - Anticipated Interventions Patient/Client Instruction: Educate patient on: Benefits of Fitness Program Therapeutic Exercise to Include: Strength training, Endurance training, Coordination, Agility training, Body mechanics, Postural training, Flexibilty training, Neuromotor development, Dynamic Lumbar Stabilization, Scapular Strength/Stabilization For the Purpose of:: To improve muscle performance and motor function TENS: Yes Cryotherapy (ice pack, ice massage): Yes Thermo therapy (hot pack): Yes Ultrasound (thermal/non thermal): Yes Thank you for the opportunity to evaluate your patient. For Medicare and Medicare HMO plans, please review the plan of care and approve it. It will need to be FAXED BACK to us at [phone] for Medicare purposes. For Medicare only, by signing this I certify the plan of care. Please let me know if there are questions or concerns regarding this plan of care. Physician Signature: Date:
--- NOTE | 2021-01-16 08:08 | HP.PT.NRP ---
ATTILA IRBY was seen in my office for initial evaluation on 09/28/20. The following Plan of Care was established for this patient: Initial Frequency: 2x /Week Initial Duration: 4 Weeks Patient/Client Instruction: Educate patient on: Benefits of Fitness Program Therapeutic Exercise to Include: Strength training, Endurance training, Coordination, Agility training, Body mechanics, Postural training, Flexibilty training, Neuromotor development, Dynamic Lumbar Stabilization, Scapular Strength/Stabilization For the Purpose of:: To improve muscle performance and motor function TENS: Yes Cryotherapy (ice pack, ice massage): Yes Thermo therapy (hot pack): Yes Ultrasound (thermal/non thermal): Yes This patient was last seen in our office . Pertinent comments regarding their Physical therapy will appear below: Patient has not attended PT in over 4 weeks and is appropriate for discharge- return to MD for further evaluation as needed. At this point I will be discontinuing this patient from physical therapy. I would be happy to see this patient again in the future if found appropriate by the physician. Thank you! Angeline Nazario, SIMONT Balance/Gait/Functional tests - Balance/Special Test Scores Quick DASH Score: 40.0000
== END 2020-10-12 19:00 | disposition home or self-care (01) ==
LOC: PT 13:30
PROVIDERS: PCP Family Medicine; Referring Provider Family Medicine; Visit Provider Family Medicine
DX: M89.8X1 Other specified disorders of bone, shoulder (principal)
CPT/HCPCS: 97035; 97110; 97162

== ENCOUNTER → 2021-07-12 | Outpatient (CLI) | payer BC, SELFPAY ==
--- NOTE | 2021-07-12 08:07 | BI_ITS ---
MAMMOGRAPHY - BILATERAL SCREENING REASON FOR EXAM: Female, 51 years old. Routine annual screening examination. PERTINENT HISTORY: Grandmother with breast cancer. Aunts with breast cancer. TECHNIQUE: Digital bilateral breast jay (3D mammographic acquisition) in the CC and MLO projections. 2-D mediolateral oblique (MLO) and craniocaudad (CC) views of both breasts were obtained. CAD: Full Field Digital Mammography with Computer Added Detection was performed. COMPARISON: Comparison is made with prior study dated 06/21/2020 and 04/15/2007. FINDINGS: Breast Composition: The breasts are heterogeneously dense, which may obscure small masses. There are no dominant masses or suspicious calcifications. Stable 6.7 mm x 6.7 mm nodule in the upper deep lateral aspect of the left breast. No other significant abnormalities are identified. There has been no significant change since the prior study. BI/SCRN MAMM (CAD)W/JAY BILAT IMPRESSION: Stable bilateral screening mammogram. Yearly follow-up mammogram recommended. (A) ASSESSMENT CATEGORY: BIRADS Category 2: Benign. A letter regarding these results will be sent to the patient by the facility within 30 days. Approximately 10% of breast cancers are not detected by mammography. A normal mammogram should not delay biopsy of a clinically suspicious abnormality. [id number] Electronically Signed: Spenser Verma MD at 10:27 EDT ,
== END | disposition home or self-care (01) ==
PROVIDERS: PCP Family Medicine; Visit Provider Family Medicine
DX: Z12.31 Encounter for screening mammogram for malignant neoplasm of breast (principal)
CPT/HCPCS: 77063; 77067

== ENCOUNTER 2021-12-19 06:10 | Day surgery (SDC) | payer OTHER, SELFPAY ==
[2021-12-19] MEDS: Lactated Ringers 1,000 ML 15 ML IV (06:30)
[2021-12-19 06:44] LABS: Internal QC Validated? YES +Cl - CLEAR BKGD; Pregnancy, Urine Negative Negative
[2021-12-19 06:48] VITALS: BP 149/98; PULSE 74; RESP 20; TEMP 36.3; O2SAT 94; BMI 37.5
--- NOTE | 2021-12-19 07:22 | HP.PCM_ITS ---
History and Physical Date of Admission: 12/19/21 [facility] [address] [place] [address] OFFICE VISIT Date of Service:? 10/18/21 MR#: [id number] Acct: [id number] Name:ATTILA MACHUCA Rep #: [id number] : 1970 ? ? Provider: Dr. Karri Infante DO Age/Sex:? 51/F ? ? Location: [facility] Status: Signed Intake Vital Signs ? 10/19/2207:11 Height 5 ft 4 in Weight: 200 lb BMI 34.3 Intake Visit Reasons:?Lt hand Chief Complaint: b/l hand numbness Allergies albuterol Allergy (Verified 10/24/19 22:40) Otherhydrocodone [From Vicodin] Allergy (Verified 10/24/19 22:40) Othermint Allergy (Verified 10/24/19 22:50) Rashnaproxen [From Aleve] Allergy (Verified 10/24/19 22:40) Hivesoxaprozin [From Daypro] Allergy (Verified 10/24/19 22:40) Swellingstrawberry Allergy (Verified 10/24/19 22:50) HivesSulfa (Sulfonamide Antibiotics) Allergy (Verified 10/24/19 22:40) Hivestea tree Allergy (Verified 10/24/19 22:50) Rash Medications omeprazole 10 mg capsule,delayed release 40 mg PO DAILY 05/16/18 [History Confirmed 10/18/21] sertraline 25 mg tablet 100 mg PO DAILY 05/16/18 [History Confirmed 10/18/21] levalbuterol tartrate 45 mcg/actuation aerosol inhaler 1 puff inhalation Q4H PRN Sob &/Or Wheezing 05/21/18 [History Confirmed 10/18/21] PFSH Medical History?(Updated 10/18/21 @ 09:[address] Karri Infante, ) Asthma Carpal tunnel syndrome on both sides HISTORY OF CHILD History of goiter Hypertension Laceration of left index finger Surgical History?(Updated 10/18/21 @ 08:12 by Polina Holland) H/O colposcopy with cervical biopsy History of carpal tunnel release Social History?(Updated 11/24/18 @ 11:[address] Karri Infante DO) Smoking Status:? Never smoker alcohol intake:? never HPI Lt hand Details: Parts of this documentation were recorded by a scribe, this documentation accurately reflects the service provided and the decisions made by me, Dr. Karri Infante DO 10/18/21 0805. ATTILA IRBY is a 51 year old F referral from Dr. Adams for left hand triggering, here today for left ring and index fingers. She was referred by her PCP Dr. Adams. She states that her finger will get stuck in a flexed position and the more she uses her fingers/hands the worse the sticking becomes. She has been having the locking/stick for about 1 year. She did have trigger finger injections of the 1st and 3rd fingers in 07/2021 which was only helpful for about 2 weeks. The injection was helpful and is still helpful with the index finger. Denies any trama to the hands. Hx of left CTR on 08/19/18 For which she has done very well with and has had no recurrent symptoms, Hx of right index finger laceration in 2018. ? Ortho Exam General General: Yes no acute distress Neurologic: Yes alert and Yes oriented x3 Psychologic: Yes reasonable and appropriate Right Wrist/Hand Skin/Wound: No Swelling, No Ecchymosis and Yes capillary refill normal Left Wrist/Hand Skin/Wound: No Swelling, No Ecchymosis, Yes nail intact, Yes capillary refill normal and No erythema A1 onofre trigger: Yes WRIST: palpable triggering of ring finger hypertrophy/nodule? of A1 onofre of ring finger She is tender over the ring A1 onofre There is no palpable triggering of the index on examination today Coding Level of Care Code Off vis,est,level 4 Diagnoses Trigger finger, left ring finger? M65.342 Trigger finger, left index finger? M65.322 Assessment and Plan Assessment and Plan (1) Trigger finger, left ring finger: ?Status:?Acute (2) Trigger finger, left index finger: ?Status:?Acute Plan Patient educated that she does have trigger finger of the left 2nd and 4th fingers, the second digit has responded well to the injection that was given by her PCP ,treatment options are do nothing or splinting of joint at night or A1 onofre injection or A1 onofre release. There is a possible risk of tendon rupture with repeat injections around the tendon. Reviewed the pre-operative plans with the patient. Risks and benefits of the procedure were fully explained, including but not limited to infection, neurovascular injury, continued pain, arthritis, stiffness, need for further surgery, re-injury, DVT, PE, general risks of anesthesia, and loss of limb or life, postoperative restrictions incisional hypersensitivity recurrence of symptoms. The patient understands all the risks and does wish to proceed with written consent for A1 onofre release of the left ring finger only. She does not wish to have surgery until 12/19/21. If she wishes to change this date she can call the office. I will forward a copy to Dr. Adams of today's note Follow up 2 weeks post op or sooner if pain, swelling, numbness or associated symptoms, or concerns develop.? All questions answered. Patient in agreement of plan. 10/18/21 0903 <Electronically signed by Karri Infante DO> Date Karri Infante DO Cosigner Signature: Date I have re-examined the patient. There are no clinical changes since date of exam
[2021-12-19] MEDS: Cefazolin 2 GM in 0.9% Normal Saline 100 ML IV (07:28)
[2021-12-19] MEDS: Lidocaine 1% /Epi 1:100 (20ml) 20 ML Vial (07:45)
--- NOTE | 2021-12-19 08:00 | PCM.OP.BLANK ---
Operative Report Date of Procedure: 12/19/21 Preoperative diagnosis; left fourth digit trigger finger Postoperative diagnosis; same Procedure: Left fourth digit A1 onofre release Anesthesia: Local with MAC Tourniquet time; 11 minutes 250 mm Hg Complications: None Indication for procedure; This is a 51-year-old female with symptoms consistent with trigger finger. Risks benefits and alternatives were reviewed including risks of bleeding infection nerve tendon tissue damage need for further surgery and continued pain and symptoms, hypersensitivity to scar/incision and recurrence. Procedure; The patient was met in the preoperative holding area the operative extremity was identified by both patient and physician and was marked the patient was met by anesthesia and brought back to the operating room and transferred to the operating table in the supine position. Aanesthesia was started. A well-padded tourniquet was placed on the operative upper extremity. The patient was prepped and draped in the usual sterile fashion. A timeout was called to ensure the proper patient procedure and extremity were being contemplated. 0.5 percent Marcaine was injected into the incisional area. Esmarch was used tourniquet was inflated. 15 blade scalpel was used to make a longitudinal incision directly over the A1 onofre was carried down through the subcutaneous tissue Stas retractors placed radial and ulnar protecting the digital nerves and a Ragnell retractor was used at the apex of the incision under direct visualization a deep blade scalpel was used to release the A1 onofre. There was a small cyst in the onofre and this was excised. the wound was thoroughly irrigated and closed with 4-0 nylon vertical mattress edges. Dressing was applied in the form of Xeroform 4 x 4 web roll and an Yves wrap. Patient tolerated the procedure well was brought back to the PACU in stable condition.
--- NOTE | 2021-12-19 08:03 | HP.PCM_ITS ---
History and Physical Date of Admission: 12/19/21
--- NOTE | 2021-12-19 08:03 | PCM.HP.BLA ---
History and Physical Date of Admission: 12/19/21
[2021-12-19 08:05] VITALS: BP 119/70; BP 149/98; PULSE 75; RESP 16; TEMP 36.3; O2SAT 93
--- NOTE | 2021-12-19 08:07 | DCINST_ITS ---
Discharge Instructions Dressing / Incision Call your doctor if you observe: Shortness of breath and Chest pain Additional Dressing/Incision Instructions:: Ice and elevate operative extremity next 72 hours. Keep dressing on clean and dry for 48 hours then may remove and allow warm soapy water to rinse over incision but do not submerge until sutures are out. Then apply bandaid over incision and change daily. encourage finger range of motion. Not lift more than 1/2 pound. Minimize narcotic use only as needed and directed, may use OTC NSAID and Tylenol to supplement/substitute for pain control. Follow Up Care Please Follow Up With: Karri Infante DO When: 2 weeks Test Results: Test results from this visit will be discussed in further detail at your follow- up appointment, if applicable. Discharge Plan Admission Attending Provider: Karri Infante Primary Care Provider: Chun Adams Discharge Orders/Prescriptions Prescriptions: New oxycodone 5 mg tablet 5 mg PO Q4H PRN (Reason: pain) 5 Days Qty: 7 0RF No Action omeprazole 10 mg capsule,delayed release(DR/EC) 40 mg PO DAILY sertraline 25 mg tablet 100 mg PO DAILY levalbuterol tartrate 1 PUFF HFA aerosol inhaler 1 puff inhalation Q4H PRN (Reason: Sob &/Or Wheezing) Referrals / Follow Up: Chun Adams MD [Primary Care Provider] - Disposition Disposition (needs filled in before D/C Order can be placed): Home, Self Care
[2021-12-19 08:10] VITALS: BP 123/79; BP 149/98; PULSE 83; RESP 16; O2SAT 96
[2021-12-19 08:15] VITALS: BP 141/81; BP 149/98; PULSE 70; RESP 16; O2SAT 94
[2021-12-19 08:20] VITALS: BP 126/86; BP 149/98; PULSE 71; RESP 16; TEMP 36.2; O2SAT 94
[2021-12-19 09:23] VITALS: BP 124/81; BP 149/98; PULSE 69; RESP 16; TEMP 36.8; O2SAT 96
== END 2021-12-19 09:40 | disposition home or self-care (01) ==
LOC: SDC 06:11 → AC 06:14
PROVIDERS: Anesthesiology; PCP Family Medicine; Referring Provider Orthopaedic Surgery; Visit Provider Orthopaedic Surgery
PROC: 0LN80ZZ Release Left Hand Tendon, Open Approach (ICD-10-PCS; CPT 26055; principal; 2021-12-19 07:20)
DX: M65.342 Trigger finger, left ring finger (principal); M65.322 Trigger finger, left index finger; I10 Essential (primary) hypertension; J45.909 Unspecified asthma, uncomplicated; K21.9 Gastro-esophageal reflux disease without esophagitis; G47.30 Sleep apnea, unspecified; Z79.899 Other long term (current) drug therapy
CPT/HCPCS: 26055; 01810; 81025; J7120; J2405

== ENCOUNTER → 2022-06-06 | Outpatient (CLI) | payer OTHER, SELFPAY ==
[2022-06-06 15:40] LABS: Hematocrit 42.2 % (37-47); Hemoglobin 12.9 g/dL (12.0-15.0); Mean Corp Hgb Conc 30.6 g/dL (32-36); Mean Corpuscular Hgb 25.6 pg (27.0-32.0); Mean Corpuscular Volume 83.7 fL (81-99); Mean Platelet Vol. 10.3 fl (6.2-12.0); Platelet Count 283 K/mm3 (150-450); RBC Distribution Width CV 14.2 % (11.6-14.6); RBC Distribution Width SD 42.9 fl (35.1-43.9); Red Blood Count 5.04 M/mm3 (4.2-5.4); White Blood Count 6.3 K/mm3 (4.4-11.0)
[2022-06-06 16:28] LABS: Anion Gap 6 (5-15); BUN 13 mg/dL (7-18); BUN/Creat Ratio 20.4 RATIO (10-20); Calcium,Total 9.1 mg/dL (8.5-10.1); Chloride 105 mmol/L (98-107); Cholesterol 200 mg/dL (200); Creatinine, Serum 0.64 mg/dL (0.55-1.02); EST Glomerular Filtration Rate 104 mL/min (>60); Est Glom Filt Rate - Afr Amer 126 mL/min (>60); Glucose 114 mg/dL (74-106); High Density Lipoprotein 56 mg/dL; Potassium 4.1 mmol/L (3.5-5.1); Sodium Level 138 mmol/L (136-145); Thyroid Stim Hormone (TSH) 1.43 uIU/mL (0.358-3.74); Triglycerides 108 mg/dL; Very Low Density Lipoprotein 22 mg/dL (5-40)
== END | disposition home or self-care (01) ==
LOC: MFPLAB 12:08
PROVIDERS: PCP Family Medicine; Referring Provider Family Medicine; Visit Provider Family Medicine
DX: K30 Functional dyspepsia (principal); E04.2 Nontoxic multinodular goiter; Z13.220 Encounter for screening for lipoid disorders
CPT/HCPCS: 36415; 80048; 80061; 84443; 85027

== ENCOUNTER 2022-09-11 11:45 | Day surgery (SDC) | payer OTHER, SELFPAY ==
[2022-09-11 12:30] VITALS: BP 156/98; PULSE 70; RESP 18; TEMP 36.7; O2SAT 96; BMI 36.6
[2022-09-11] MEDS: Lactated Ringers 1,000 ML 15 ML IV (12:34)
--- NOTE | 2022-09-11 13:15 | PCM.HP.BLA ---
History and Physical Date of Admission: 09/11/22 [facility] [address] [place] [address] OFFICE VISIT Date of Service:? 08/15/22 MR#: [id number] Acct: [id number] Name:ATTILA MACHUCA Rep #: [id number] : 1970 ? ? Provider: Dr. Karri Infante, DO Age/Sex:? 52/F ? ? Location: [facility] [place] Status: Signed Intake Vital Signs ? 12/19/2205:48 Height 5 ft 4 in Intake Visit Reasons:?right hand Chief Complaint: b/l hand numbness Allergies albuterol Allergy (Verified 08/15/22 13:38) Otherhydrocodone [From Vicodin] Allergy (Verified 08/15/22 13:38) Othermint Allergy (Verified 08/15/22 13:38) Rashnaproxen [From Aleve] Allergy (Verified 08/15/22 13:38) Hivesoxaprozin [From Daypro] Allergy (Verified 08/15/22 13:38) SwellingSulfa (Sulfonamide Antibiotics) Allergy (Verified 08/15/22 13:38) Hivestea tree Allergy (Verified 08/15/22 13:38) Rash Medications omeprazole 10 mg capsule,delayed release 40 mg PO DAILY 05/16/18 [History Confirmed 08/15/22] sertraline 25 mg tablet 100 mg PO DAILY 05/16/18 [History Confirmed 08/15/22] levalbuterol tartrate 45 mcg/actuation aerosol inhaler 1 puff inhalation Q4H PRN Sob &/Or Wheezing 05/21/18 [History Confirmed 08/15/22] PFSH Medical History? Anxiety Asthma Back pain Carpal tunnel syndrome on both sides Gastric reflux HISTORY OF CHILD History of goiter Hypertension Injury of back Laceration of left index finger Migraine headache Non-smoker Sleep apnea Thyroid disease Wears glasses Surgical History? H/O colposcopy with cervical biopsy History of carpal tunnel release History of carpal tunnel surgery of right wrist History of lingual frenulotomy History of root canal procedure Social History? Smoking Status:? Never smoker alcohol intake:? never HPI right hand Details: Parts of this documentation were recorded by a scribe, this documentation accurately reflects the service provided and the decisions made by me, Dr. Karri Infante, DO 08/15/22 0302. ATTILA IRBY is a 52 year old F here today for her right hand. She is here to discuss having a right middle and ring trigger finger release done. She would like to have it done on 09/11/22. STates that she is still getting relief from the injections that were done on 02/28/22. ? Ortho Exam General General: Yes no acute distress Neurologic: Yes alert and Yes oriented x3 Psychologic: Yes reasonable and appropriate Right Wrist/Hand Skin/Wound: Yes CDI, No Swelling, No Ecchymosis and Yes capillary refill normal WRIST: Hypertrophy tender A1 pulleys of the right ring and middle finger mild triggering is noted of the middle finger not currently of the ring finger there is no other mass skin concern. Left Wrist/Hand Skin/Wound: Yes CDI, No Swelling, No Ecchymosis, Yes capillary refill normal and No erythema WRIST: Triggering middle finger, hypertrophy tender A1 onofre, ring finger status post A1 release without sign infection no triggering. Coding Level of Care Code Off vis,est,level 3 Diagnoses Trigger finger, right middle finger? M65.331 Trigger ring finger of right hand? M65.341 Assessment and Plan Assessment and Plan (1) Trigger finger, right middle finger: ?Status:?Acute (2) Trigger ring finger of right hand: ?Status:?Acute Plan Patient edcauted that she has trigger fingers. Treatment options are do nothing or steroid injection or A1 onofre release. SHe wishes to proceed with surgery. Reviewed the pre-operative plans with the patient. Risks and benefits of the procedure were fully explained, including but not limited to infection, neurovascular injury, continued pain, arthritis, stiffness, need for further surgery, re-injury, DVT, PE, general risks of anesthesia, and loss of limb or life. The patient understands all the risks and does wish to proceed with written consent for right middle and right ring finger A1 onofre release. Follow up in 2 weeks postop or sooner if pain, swelling, numbness or associated symptoms, or concerns develop.? All questions answered. Patient in agreement of plan. 08/15/22 1359 <Electronically signed by Karri Infante DO> Date Karri Infante DO Cosigner Signature: Date (if applicable) ? CC: ? ~ I have examined the patient and the H&P has been reviewed. There are no clinical changes since date of exam.
[2022-09-11] MEDS: Cefazolin 2 GM in 0.9% Normal Saline 100 ML IV (13:35)
[2022-09-11] MEDS: Lidocaine 1%/Epi 1:100 (30ml) 30 ML VIAL (13:50)
--- NOTE | 2022-09-11 14:10 | PCM.OP.BLANK ---
Operative Report Date of Procedure: 09/11/22 Preoperative diagnosis; right third finger trigger finger, and right fourth finger trigger finger Postoperative diagnosis; same Procedure: 1. Trigger finger release right middle finger; 2 trigger finger release right ring finger Anesthesia: Local with MAC Tourniquet time; 14 minutes 250 mm Hg Complications: None Indication for procedure; This is a 52-year-old female with symptoms consistent with trigger finger. Risks benefits and alternatives were reviewed including risks of bleeding infection nerve tendon tissue damage need for further surgery and continued pain and symptoms, hypersensitivity to scar/incision and recurrence. Procedure; The patient was met in the preoperative holding area the operative extremity was identified by both patient and physician and was marked the patient was met by anesthesia and brought back to the operating room and transferred to the operating table in the supine position. Aanesthesia was started. A well-padded tourniquet was placed on the operative upper extremity. The patient was prepped and draped in the usual sterile fashion. A timeout was called to ensure the proper patient procedure and extremity were being contemplated. 0.5 percent Marcaine was injected into the incisional areas. Esmarch was used tourniquet was inflated. 15 blade scalpel was used to make a longitudinal incision directly over the A1 onofre of the ring finger was carried down through the subcutaneous tissue Stas retractors placed radial and ulnar protecting the digital nerves and a Ragnell retractor was used at the apex of the incision under direct visualization a deep blade scalpel was used to release the A1 onofre. The wound was thoroughly irrigated and closed with 4-0 nylon vertical mattress edges. The procedure was repeated for the fourth finger in the same manner. Dressing was applied in the form of Xeroform 4 x 4 web roll and an Yves wrap. Patient tolerated the procedure well was brought back to the PACU in stable condition.
--- NOTE | 2022-09-11 14:12 | DCINST_ITS ---
Discharge Instructions Diet Discharge Diet: No restrictions Dressing / Incision Call your doctor if you observe: Shortness of breath and Chest pain Additional Dressing/Incision Instructions:: Ice and elevate operative extremity next 72 hours. Keep dressing on clean and dry for 48 hours then may remove and allow warm soapy water to rinse over incision but do not submerge until sutures are out. Then apply bandaid over incision and change daily. encourage finger range of motion. Not lift more than 1/2 pound. Minimize narcotic use only as needed and directed, may use OTC NSAID and Tylenol to supplement/substitute for pain control. Follow Up Care Please Follow Up With: Karri Infante DO When: 2 weeks Test Results: Test results from this visit will be discussed in further detail at your follow- up appointment, if applicable. Discharge Plan Admission Primary Reason for Your Visit: Right middle and ring finger A1 onofre release Attending Provider: Karri Infante Primary Care Provider: Chun Adams Discharge Orders/Prescriptions Prescriptions: New oxycodone 5 mg tablet 5 mg PO Q4H PRN (Reason: pain) 3 Days Qty: 10 0RF Continued omeprazole 10 mg capsule,delayed release(DR/EC) 40 mg PO DAILY sertraline 25 mg tablet 100 mg PO DAILY levalbuterol tartrate 1 PUFF HFA aerosol inhaler 1 puff inhalation Q4H PRN (Reason: Sob &/Or Wheezing) Referrals / Follow Up: Chun Adams MD [Primary Care Provider] - Disposition Disposition (needs filled in before D/C Order can be placed): Home, Self Care
[2022-09-11 14:15] VITALS: BP 116/71; BP 156/98; PULSE 72; RESP 18; TEMP 36.6; O2SAT 97
[2022-09-11 14:20] VITALS: BP 113/71; BP 156/98; PULSE 72; RESP 18; O2SAT 94
[2022-09-11 14:25] VITALS: BP 117/81; BP 156/98; PULSE 69; RESP 18; O2SAT 92
[2022-09-11 14:30] VITALS: BP 122/78; BP 156/98; PULSE 67; RESP 18; TEMP 36.2; O2SAT 96
[2022-09-11 15:25] VITALS: BP 151/93; BP 156/98; PULSE 64; RESP 16; TEMP 36.8; O2SAT 95
== END 2022-09-11 15:30 | disposition home or self-care (01) ==
LOC: SDC 11:48 → AC 11:50
PROVIDERS: PCP Family Medicine; Referring Provider Orthopaedic Surgery; Visit Provider Orthopaedic Surgery
PROC: (CPT 26055; principal; 2022-09-11 13:30)
DX: M65.331 Trigger finger, right middle finger (principal); M65.341 Trigger finger, right ring finger; G47.30 Sleep apnea, unspecified; J45.909 Unspecified asthma, uncomplicated; F41.9 Anxiety disorder, unspecified; K21.9 Gastro-esophageal reflux disease without esophagitis; I10 Essential (primary) hypertension; Z79.899 Other long term (current) drug therapy
CPT/HCPCS: 26055 ×2; 01810; J7120; J2405

== ENCOUNTER → 2023-05-29 | Outpatient (CLI) | payer OTHER, SELFPAY ==
[2023-05-29 16:00] LABS: Hematocrit 42.1 % (37-47); Hemoglobin 12.7 g/dL (12.0-15.0); Mean Corp Hgb Conc 30.2 g/dL (32-36); Mean Corpuscular Volume 82.7 fL (81-99); Mean Platelet Vol. 10.6 fl (6.2-12.0); Platelet Count 294 K/mm3 (150-450); RBC Distribution Width CV 14.9 % (11.6-14.6); RBC Distribution Width SD 45.1 fl (35.1-43.9); Red Blood Count 5.09 M/mm3 (4.2-5.4); White Blood Count 5.8 K/mm3 (4.4-11.0)
[2023-05-29 16:16] LABS: AST(SGOT) 27 U/L (15-37); Alanine Aminotransfer ALT/SGPT 43 U/L (13-56); Alkaline Phosphatase 79 U/L (45-117); Anion Gap 5 (5-15); BUN 12 mg/dL (7-18); BUN/Creat Ratio 17.1 RATIO (10-20); Bilirubin, Direct 0.16 mg/dL (0.00-0.30); Calcium,Total 8.7 mg/dL (8.5-10.1); Chloride 103 mmol/L (98-107); Cholesterol 230 mg/dL (200); EST Glomerular Filtration Rate 93 mL/min (>60); Est Glom Filt Rate - Afr Amer 112 mL/min (>60); Globulin 3.4 g/dL (2.2-4.2); Glucose 107 mg/dL (74-106); High Density Lipoprotein 53 mg/dL; Protein, Total 7.4 g/dL (6.4-8.2); Sodium Level 139 mmol/L (136-145); Thyroid Stim Hormone (TSH) 1.09 uIU/mL (0.358-3.74); Triglycerides 160 mg/dL; Very Low Density Lipoprotein 32 mg/dL (5-40)
== END | disposition home or self-care (01) ==
LOC: MFPLAB 11:45
PROVIDERS: PCP Family Medicine; Visit Provider Family Medicine
DX: N93.8 Other specified abnormal uterine and vaginal bleeding (principal); R73.01 Impaired fasting glucose; Z13.220 Encounter for screening for lipoid disorders; Z13.1 Encounter for screening for diabetes mellitus
CPT/HCPCS: 36415; 80048; 80061; 80076; 84443; 85027

== ENCOUNTER → 2023-06-05 | Outpatient (CLI) | payer OTHER, SELFPAY ==
--- NOTE | 2023-06-05 12:06 | BI_ITS ---
MAMMOGRAPHY - BILATERAL SCREENING REASON FOR EXAM: Female, 53 years old. Routine annual screening examination. PERTINENT HISTORY: Grandmother with breast cancer. Aunt with breast cancer. TECHNIQUE: Digital bilateral breast jay (3D mammographic acquisition) in the CC and MLO projections. 2-D mediolateral oblique (MLO) and craniocaudad (CC) views of both breasts were obtained. CAD: Full Field Digital Mammography with Computer Added Detection was performed. COMPARISON: Comparison is made with prior study dated July 12, 2021 and June 21, 2020. FINDINGS: Breast Composition: There are scattered areas of fibroglandular density. There are no dominant masses or suspicious calcifications. Stable 6.7 mm well-defined nodule in the deep upper lateral aspect of the left breast. Stable bilateral fat containing axillary lymph nodes. No other significant abnormalities are identified. There has been no significant change since the prior study. BI/SCRN MAMM (CAD)W/JAY BILAT IMPRESSION: Stable bilateral screening mammogram. Yearly follow-up mammogram recommended. (A) ASSESSMENT CATEGORY: BIRADS Category 2: Benign. A letter regarding these results will be sent to the patient by the facility within 30 days. Approximately 10% of breast cancers are not detected by mammography. A normal mammogram should not delay biopsy of a clinically suspicious abnormality. [id number] Electronically Signed: Spenser Verma MD at 13:43 EDT ,
== END | disposition home or self-care (01) ==
LOC: OPBI 12:05
PROVIDERS: PCP Family Medicine; Referring Provider Family Medicine; Visit Provider Family Medicine
DX: Z12.31 Encounter for screening mammogram for malignant neoplasm of breast (principal)
CPT/HCPCS: 77063; 77067

== ENCOUNTER → 2024-07-10 | Outpatient (CLI) | payer BC, SELFPAY ==
--- NOTE | 2024-07-10 10:36 | BI_ITS ---
EXAM: SCRN MAMM (CAD)W/JAY BILAT 07/10/2024 CLINICAL HISTORY: F, Age 54 y/o , SCREENING TECHNIQUE: Bilateral screening digital breast tomosynthesis with 2D and 3D images. Computer aided detection. COMPARISON: Prior exam(s) dated 06/05/2023, 07/12/2021. FINDINGS: TISSUE DENSITY: The breast tissue is composed of scattered area of fibroglandular density. Bilateral Breast Mammographic Findings: No significant masses, calcifications or other abnormalities are identified. BI/SCRN MAMM (CAD)W/JAY BILAT IMPRESSION: Right Breast: BIRADS 1 NEGATIVE. Left Breast: BIRADS 1 NEGATIVE. OVERALL FINAL ASSESSMENT: BIRADS 1 NEGATIVE. RECOMMENDATION: Routine annual follow-up in 1 Year A letter with findings and recommendations will be mailed to the patient. Reading Location: [id number]
== END | disposition home or self-care (01) ==
LOC: OPBI 10:35
PROVIDERS: PCP Family Medicine; Referring Provider Family Medicine; Visit Provider Family Medicine
DX: Z12.31 Encounter for screening mammogram for malignant neoplasm of breast (principal)
CPT/HCPCS: 77063; 77067

== ENCOUNTER → 2024-07-29 | Outpatient (CLI) | payer BC, SELFPAY ==
[2024-07-31 16:09] LABS: Chlamydia By Nucleic Acid AMP Negative (Negative); Gonococcus By Nucleic Acid AMP Negative (Negative); Trich. Vag By Nucleic Acid AMP Negative (Negative)
[2024-08-03 23:13] LABS: HPV Reflexed? NOT INDICATED
== END | disposition home or self-care (01) ==
LOC: LABSPEC 10:22
PROVIDERS: PCP Family Medicine
DX: Z12.4 Encounter for screening for malignant neoplasm of cervix (principal)
CPT/HCPCS: 87491; 87591; 88175; G0145

== ENCOUNTER → 2024-12-30 | Outpatient (CLI) | payer BC, SELFPAY ==
--- NOTE | 2024-12-30 10:12 | RAD_ITS ---
PROCEDURE: KNEE 4 OR MORE VIEWS 12/30/2024 REASON FOR EXAM: L KNEE PAIN, NO INJURY TECHNIQUE: Procedure Code: RADKN Modality: DX Procedure: KNEE 4 OR MORE VIEWS Laterality: Left COMPARISON: None FINDINGS: Left knee: There is no evidence of fracture or dislocation. There is mild arthritis of the patellofemoral joint. There is mild arthritis of the medial joint space compartment of the knee. There is no arthritis of the lateral joint space compartment of the knee. There is no knee joint effusion. The periarticular soft tissues are normal. RAD/Knee 4 or More Views IMPRESSION: Mild arthritis without knee joint effusion. Reading Location: [place] [address]
== END | disposition home or self-care (01) ==
LOC: MTRAD 10:10
PROVIDERS: PCP Family Medicine; Referring Provider Family Medicine; Visit Provider Family Medicine
DX: M25.562 Pain in left knee (principal)
CPT/HCPCS: 73564

== ENCOUNTER → 2025-01-20 | Outpatient (CLI) | payer BC, SELFPAY ==
[2025-01-20 10:25] LABS: Hematocrit 42.1 % (37-47); Hemoglobin 13.2 g/dL (12.0-15.0); Mean Corp Hgb Conc 31.4 g/dL (32-36); Mean Corpuscular Volume 84.9 fL (81-99); Mean Platelet Vol. 10.1 fl (6.2-12.0); Platelet Count 264 K/mm3 (150-450); RBC Distribution Width CV 13.5 % (11.6-14.6); RBC Distribution Width SD 41.9 fl (35.1-43.9); Red Blood Count 4.96 M/mm3 (4.2-5.4); White Blood Count 6.2 K/mm3 (4.4-11.0)
[2025-01-20 11:05] LABS: AST(SGOT) 22 U/L (<=31); Alanine Aminotransfer ALT/SGPT 38 U/L (<=34); Albumin, Serum 4.3 g/dL (3.5-5.0); Alkaline Phosphatase 62 U/L (35-104); Anion Gap 12 (5-15); BUN 18 mg/dL (4-19); BUN/Creat Ratio 27.5 RATIO (10-20); Calcium,Total 9.2 mg/dL (7.6-11.0); Carbon Dioxide 30.0 mmol/L (21.0-32.0); Chloride 99 mmol/L (98-108); Cholesterol 223 mg/dL (<=200); Globulin 2.8 g/dL (2.2-4.2); Glucose 160 mg/dL (70-99); Low Density Lipoprotein Calc. 148 mg/dL; Potassium 3.2 mmol/L (3.3-5.1); Triglycerides 173 mg/dL; Very Low Density Lipoprotein 35 mg/dL (5-40); Vitamin B12 697 pg/mL (180-914); Vitamin D,25 Hydroxy 19.0 ng/mL (30-100); cholesterol:hdl ratio screen 5.07
== END | disposition home or self-care (01) ==
LOC: MFPLAB 08:19
PROVIDERS: PCP Family Medicine; Visit Provider Family Medicine
DX: R53.83 Other fatigue (principal); R73.01 Impaired fasting glucose
CPT/HCPCS: 36415; 80053; 80061; 82306; 82607; 84443; 85027